=== PATIENT | male | born 1985 | race Caucasian/White ===

== ENCOUNTER 2018-12-13 14:02 | Emergency (ER) | payer SELFPAY ==
[~2018-12-13] VITALS: Ht 172.7 cm; Wt 23.6 kg
--- NOTE | 2018-12-13 14:12 | NUR ---
BIB SELF W C/ CHEST PAIN "started having pain in my heart 1H ago sharp worse w/breath, going away now". TO ER BED 2, HOOKED TO MONITOR, AWAITING MD LÓPEZ
--- NOTE | 2018-12-13 15:00 | NUR ---
DR PANCHAL AT BEDSIDE
--- NOTE | 2018-12-13 15:16 | NUR ---
Patient discharged to home in stable condition. Written and verbal after care instructions given. Patient verbalizes understanding of instruction.
[2018-12-13 15:18] VITALS: BP 126/72
== END 2018-12-13 15:20 | disposition home or self-care (01) ==
LOC: ER 14:12
DX: R07.89 Other chest pain (principal)
CPT/HCPCS: 93005; 99283; A4606; Z7610